=== PATIENT | female | born 1960 | race Two or more races ===

== ENCOUNTER 2022-03-15 14:34 | Emergency (ER) | payer MEDICAID, OTHER ==
[2022-03-15 14:43] VITALS: BP 135/77
--- NOTE | 2022-03-15 14:44 | ED Physician Documentation ---
PD HPI FEMALE - Stated complaint Stated Complaint: FEMALE - Chief complaint Chief Complaint: UTI - History obtained from History obtained from: Patient - History of Present Illness Timing - onset: How many days ago (few) Timing - duration: Days (few) Timing - details: Gradual onset, Still present Associated symptoms: No: Fever, Abdominal pain Contributing factors: No: Sexually active Similar symptoms before: Diagnosis (UTIs) Recently seen: Not recently seen Review of Systems Constitutional: denies: Fever, Chills, Myalgias GI: denies: Abdominal Pain, Nausea, Vomiting Skin: denies: Rash, Lesions Musculoskeletal: reports: Back pain (mild right CVA area.) Neurologic: denies: Generalized weakness, Near syncope PD PAST MEDICAL HISTORY - Past Medical History Cardiovascular: None Respiratory: None Endocrine/Autoimmune: None : Chronic bladder infection - Present Medications Home Medications: Ambulatory Orders Medication Instructions Recorded Confirmed Naproxen 250 mg PO BID 7 Days #14 tablet 03/15/22 Phenazopyridine HCl [Pyridium] 100 mg PO TID PRN #15 tablet 03/15/22 Sulfamethox/Trimeth 800/160 1 each PO BID 5 Days #10 tablet 03/15/22 [Bactrim Ds 800/160] - Allergies Allergies/Adverse Reactions: Allergies Allergy/AdvReac Type Severity Reaction Status Date / Time ceftriaxone [From Rocephin] Allergy Edema Verified 03/15/22 14:40 ciprofloxacin Allergy Rash Verified 03/15/22 14:40 levofloxacin [From Levaquin] Allergy Itching Verified 03/15/22 14:40 cefuroxime [From Ceftin] AdvReac Nausea Verified 03/15/22 14:40 PD ED PE NORMAL - Vitals Vital signs reviewed: Yes - General General: Alert and oriented X 3, No acute distress, Well developed/nourished - Abdomen Abdomen: Soft, Non tender - Back Back: No CVA TTP - Derm Derm: Normal color, Warm and dry - Neuro Neuro: Alert and oriented X 3, No motor deficit, Normal speech Results - Vitals Vitals: Vital Signs - 24 hr 03/15/22 14:40 Temperature 36.4 C L Heart Rate 75 Respiratory 18 Rate Blood Pressure 135/77 H O2 Saturation 99 Oxygen O2 Source Room air - Labs Labs: Laboratory Tests 03/15/22 14:55 Urine Color DARK YELLOW Urine Clarity CLEAR Urine pH 6.5 Ur Specific [place] 1.020 Urine Protein NEGATIVE Urine Glucose (UA) NEGATIVE Urine Ketones NEGATIVE Urine Occult Blood NEGATIVE Urine Nitrite NEGATIVE Urine Bilirubin NEGATIVE Urine Urobilinogen 2 H Ur Leukocyte Esterase NEGATIVE Ur Microscopic Review NOT INDICATED Urine Culture Comments NOT INDICATED PD MEDICAL DECISION MAKING - ED course Complexity details: reviewed results (Urine test does not show signs of infection. Her symptoms however are consistent with UTIs that she has had in the past. Her abdomen is benign on exam. I feel low risk for BV or vaginitis. Can treat empirically for cystitis with caution to return if not better in the next couple of days.), considered differential, d/w patient Departure - Departure Disposition: Home, Self Care Clinical Impression: Dysuria Condition: Stable Record reviewed to determine appropriate education?: Yes Instructions: ED UTI Cystitis Female Prescriptions: Sulfamethox/Trimeth 800/160 [Bactrim Ds 800/160] 1 each PO BID 5 Days #10 tablet Naproxen 250 mg PO BID 7 Days #14 tablet Phenazopyridine HCl [Pyridium] 100 mg PO TID PRN #15 tablet PRN Reason: Abdominal Pain Comments: Your urine sample does not show an obvious infection. However your symptoms are similar to bladder infections you have had before so we can treat empirically at this point and see how you do over the next few days. However be easy to return for a recheck or follow-up with your primary care if not readily improving over the next 2 to 3 days in case we need to be looking for other causes for your symptoms. If you get improved with medication and no further follow-up needed necessarily. I transmitted your prescriptions for an anti-inflammatory, medication for your discomfort as well as an antibiotic to [facility] in [place]. Discharge Date/Time: 03/15/22 15:34
[2022-03-15 15:03] LABS: BILIRUBIN,URINE NEGATIVE (NEGATIVE); GLUCOSE, URINE (UA) NEGATIVE (NEGATIVE); KETONES,URINE (UA) NEGATIVE (NEGATIVE); LEUKOCYTE ESTERASE, URINE NEGATIVE (NEGATIVE); NITRITE,URINE NEGATIVE (NEGATIVE); OCCULT BLOOD,URINE NEGATIVE (NEGATIVE); PH,URINE 6.5 PH (5.0-7.5); PROTEIN,URINE NEGATIVE (NEGATIVE); UROBILINOGEN,URINE 2 E.U./dL (NORMAL)
[2022-03-15 15:06] LABS: CLARITY,URINE CLEAR (CLEAR)
[2022-03-15] MEDS: NAPROXEN 250 MG TABLET PO STA (15:29)
[2022-03-15] MEDS: PHENAZOPYRIDINE 100 MG TABLET PO STA (15:29)
[2022-03-15] MEDS: SULFAMETH/TRIMETH DS 800/160 MG TABLET PO STA (15:29)
== END 2022-03-15 15:34 | disposition home or self-care (01) ==
LOC: ED 14:34
DX: R30.0 Dysuria (principal)
CPT/HCPCS: 81003; 99283; A9270; 81001; 87086

== ENCOUNTER 2022-05-11 11:50 | Emergency (ER) | payer MEDICAID ==
[2022-05-11 12:05] VITALS: BP 136/75
--- NOTE | 2022-05-11 12:44 | ED Physician Documentation ---
History of Present Illness - Stated complaint Stated Complaint: SINUS PX - Chief complaint Chief Complaint: Heent - Additonal information Additional information: 62-year-[place] presents for 2 days of sinus pressure congestion pain and headache. Reports that her grandkids at home have had the flu and/or allergies recently. She does endorse a cough but no fevers. Has copious amount of clear nasal drainage. She reports herself as having chronic sinusitis and they always give her antibiotics when she is in [place]. She is here to help her daughter who is having a baby but plans to return to [place] shortly. Denies any history of tobacco use. No diabetes. Takes no prescribed medications by provider. She has tried Tylenol without relief of the pain. She has taken 1 allergy tablet that she does not feel helps with the symptoms Review of Systems Constitutional: denies: Fever, Chills Eyes: reports: Loss of vision Ears: reports: Ear pain, Tinnitus/ringing Nose: reports: Rhinorrhea / runny nose, Congestion Throat: denies: Dental pain / toothache, Sore throat Respiratory: reports: Cough GI: reports: Reviewed and negative : reports: Reviewed and negative Skin: reports: Reviewed and negative PD PAST MEDICAL HISTORY - Past Medical History Cardiovascular: None Respiratory: None Endocrine/Autoimmune: None : Chronic bladder infection - Present Medications Home Medications: Ambulatory Orders Medication Instructions Recorded Confirmed Ibuprofen [Motrin] 600 mg PO Q6H PRN #30 tab 04/24/22 05/11/22 Fluticasone [Flonase] 1 sprays HANNAH DAILY #16 gm 05/11/22 - Allergies Allergies/Adverse Reactions: Allergies Allergy/AdvReac Type Severity Reaction Status Date / Time ceftriaxone [From Rocephin] Allergy Edema Verified 05/11/22 12:01 ciprofloxacin Allergy Rash Verified 05/11/22 12:01 levofloxacin [From Levaquin] Allergy Itching Verified 05/11/22 12:01 cefuroxime [From Ceftin] AdvReac Nausea Verified 05/11/22 12:01 - Social History Does the pt smoke?: No Smoking Status: Never smoker PD ED PE EXPANDED - General General: Alert, No acute distress, Well developed/nourished - HEENT HEENT: PERRL, Ears normal, Right frontal sinus TTP, Left frontal sinus TTP, Right maxillary sinus TTP, Left maxillary sinus TTP, Nasal congestion, Rhinorrhea, Pharynx normal - Neck Neck: Supple w/out meningeal sx. No: Adenopathy - Cardiac Cardiac: Regular Rate, Radial strong equal, Pedal strong equal, Cap refill < 2 sec. No: Murmur Present - Respiratory Respiratory: Clear to ausultation yana. No: Distress, Labored - Neuro Neuro: Alert and Oriented X 3, CNII-XII intact - GCS Eye Opening: Spontaneous Motor: Obeys Commands Verbal: Oriented Total: 15 Results - Vitals Vitals: Vital Signs - 24 hr 05/11/22 12:01 Temperature 36.7 C Heart Rate 99 Respiratory 18 Rate Blood Pressure 136/75 H O2 Saturation 99 Oxygen O2 Source Room air PD MEDICAL DECISION MAKING - ED course Complexity details: considered differential, d/w patient ED course: This is a very well-appearing 62-year-old female that presents emergency department for 2 days of sinus pressure and pain. She does have a cough. No fevers, facial swelling. She has copious clear nasal secretions. Similar illness in children and grandchildren at home. On exam I suspect she likely has a viral sinusitis or allergy induced congestion. I have made the recommendation for saline nasal rinses followed by Flonase nasal spray. She should continue the daily allergy medicine. She may benefit from a dose or 2 of Sudafed to help with congestion. Patient is frustrated. She would like a prescription for antibiotics but we discussed that with a short duration of symptoms no secondary findings suggest a bacterial sinusitis I felt it would be more appropriate to consider conservative measures instead. Patient will return if symptoms not better over the next week or she develops any fevers Departure - Departure Disposition: 01 Home, Self Care Clinical Impression: Sinus congestion Condition: Stable Record reviewed to determine appropriate education?: Yes Instructions: ED Sinusitis No Abx Tx Ch Prescriptions: Fluticasone [Flonase] 1 sprays HANNAH DAILY #16 gm Comments: Alina you were seen today because you had 2 days of sinus pressure, congestion headaches and nasal drainage that is clear. As we discussed at the bedside you most likely have either a virus or allergies that are causing your symptoms. I would like you to try saline nasal rinses in the shower followed by Flonase nasal spray. This can help reduce the congestion and the steroid and the Flonase can help prevent the congestion from coming back. A dose or 2 of Sudafed can also help reduce your congestion but do not use this for too long or too often as you can get rebound congestion from overuse. Continuing the daily allergy medication should also help. In general most sinus pressure and congestion will begin to improve after a week to 10 days. If you find that your symptoms or not improving, you have fevers, facial swelling milky drainage from your nose and please return to the ER for a second evaluation.
== END 2022-05-11 12:59 | disposition home or self-care (01) ==
LOC: ED 11:50
DX: R09.81 Nasal congestion (principal)
CPT/HCPCS: 99282

== ENCOUNTER 2023-12-18 11:37 | Emergency (ER) | payer MEDICAID, MEDICARE, OTHER ==
[2023-12-18 11:52] VITALS: O2SAT 99
--- NOTE | 2023-12-18 12:11 | ED Physician Documentation ---
PD HPI HEENT - Stated complaint Stated Complaint: CONGESTION,SINUS SWELLING - Chief complaint Chief Complaint: Heent - History obtained from History obtained from: Patient - Additional information Additional information: Patient is a 63-year-old female presenting for evaluation of bilateral maxillary sinus congestion and pressure that has been ongoing for 3 weeks. She reports having green nasal drainage. She denies fever. No cough or chest pain or shortness of breath. Patient reports had a history of sinus infections in the past. She has tried bzib-yap-rboyija medications without any improvement. Review of Systems Constitutional: denies: Fever Nose: reports: Congestion, Sinus pressure / pain Cardiac: denies: Chest pain / pressure Respiratory: denies: Dyspnea GI: reports: Nausea. denies: Abdominal Pain PD PAST MEDICAL HISTORY - Past Medical History Past Medical History: Yes Cardiovascular: None Respiratory: None Neuro: None Endocrine/Autoimmune: None : Chronic bladder infection HEENT: Chronic sinusitis - Present Medications Home Medications: Ambulatory Orders Medication Instructions Recorded Confirmed Ibuprofen [Motrin] 600 mg PO Q6H PRN #30 tab 04/24/22 05/11/22 Fluticasone [Flonase] 1 sprays HANNAH DAILY #16 gm 05/11/22 Amox/Clav 875/125 [Augmentin] 1 each PO Q12H #14 tablet 12/18/23 Ondansetron Odt [Zofran] 4 mg TL Q6H PRN #10 tablet 12/18/23 - Allergies Allergies/Adverse Reactions: Allergies Allergy/AdvReac Type Severity Reaction Status Date / Time ceftriaxone [From Rocephin] Allergy Edema Verified 12/18/23 11:44 ciprofloxacin Allergy Rash Verified 12/18/23 11:44 levofloxacin [From Levaquin] Allergy Itching Verified 12/18/23 11:44 cefuroxime [From Ceftin] AdvReac Nausea Verified 12/18/23 11:44 - Social History Does the pt smoke?: No Smoking Status: Never smoker Does the pt drink ETOH?: No Does the pt have substance abuse?: No - Immunizations Immunizations are current?: Yes PD ED PE NORMAL - General General: Alert and oriented X 3, No acute distress, Well developed/nourished - HEENT HEENT: Atraumatic, Moist mucous membranes, Pharynx benign, Other (Tenderness over bilateral maxillary sinuses, no overlying erythema, no facial swelling) - Neck Neck: Supple, no meningeal sign - Cardiac Cardiac: RRR, Strong equal pulses - Respiratory Respiratory: No respiratory distress, Clear bilaterally - Derm Derm: Warm and dry - Neuro Neuro: Normal speech Results - Vitals Vitals: Vital Signs - 24 hr 12/18/23 12/18/23 11:44 12:17 Temperature 36.6 C 36.5 C Heart Rate 74 72 Respiratory 15 16 Rate Blood Pressure 128/79 124/75 O2 Saturation 99 99 Oxygen O2 Source Room air PD Medical Decision Making - ED course ED course: Patient with sinus tenderness and fullness for the past 3 weeks. Her symptoms have not improved with lasn-yjl-eslmqme treatments. She is otherwise well-appea ring. No signs of labored breathing. Vital signs are stable. No signs of facial abscess. No signs of airway compromise. Given the duration of her symptoms feel an antibiotic course is appropriate and have sent a prescription for Augmentin to her pharmacy. Patient counseled on a treatment plan as well as concerning symptoms to return for. Departure - Departure Disposition: Home, Self Care Clinical Impression: Sinusitis Condition: Stable Instructions: ED Sinusitis Abx Tx Prescriptions: Amox/Clav 875/125 [Augmentin] 1 each PO Q12H #14 tablet Ondansetron Odt [Zofran] 4 mg TL Q6H PRN #10 tablet PRN Reason: Nausea / Vomiting Comments: Given the duration of your symptoms we have opted to treat with antibiotics. If sent your prescriptions to [facility] in [place] which includes an antibiotic as well as antinausea medication. Continue with staying hydrated and using the saline sprays to loosen any congestion. Return to the ER with any worsening symptoms or new concerns. Forms: PCP List Discharge Date/Time: 12/18/23 12:17
[2023-12-18 12:22] VITALS: BP 124/75
== END 2023-12-18 12:17 | disposition home or self-care (01) ==
LOC: ED 11:37
DX: J32.9 Chronic sinusitis, unspecified (principal)
CPT/HCPCS: 99282; 99283

== ENCOUNTER 2024-01-06 12:14 | Emergency (ER) | payer MEDICARE ==
[2024-01-06 12:30] VITALS: BP 112/56; O2SAT 98
--- NOTE | 2024-01-06 12:34 | ED Physician Documentation ---
History of Present Illness - Stated complaint Stated Complaint: - Chief complaint Chief Complaint: Abd Pain - History obtained from History obtained from: Patient - Additonal information Additional information: 63-year-old woman with frequent UTIs who is visiting from [place] with right ear pain for 2 weeks and also urinary frequency and urgency for a week. She has seen urology in [place] without specific diagnosis except for potential atrophic vaginitis for which she takes a cream. She denies fevers. PD PAST MEDICAL HISTORY - Past Medical History Past Medical History: Yes Cardiovascular: None Respiratory: None Neuro: None Endocrine/Autoimmune: None : Chronic bladder infection HEENT: Chronic sinusitis - Past Surgical History Past Surgical History: No - Present Medications Home Medications: Ambulatory Orders Medication Instructions Recorded Confirmed Nitrofurantoin [Macrobid] 1 cap PO BID #10 cap 01/06/24 Ondansetron Odt [Zofran] 4 mg TL Q6H PRN #10 tablet 01/06/24 Pantoprazole [Protonix] 40 mg PO DAILY 01/06/24 01/06/24 - Allergies Allergies/Adverse Reactions: Allergies Allergy/AdvReac Type Severity Reaction Status Date / Time ceftriaxone [From Rocephin] Allergy Edema Verified 01/06/24 12:23 ciprofloxacin Allergy Rash Verified 01/06/24 12:23 levofloxacin [From Levaquin] Allergy Itching Verified 01/06/24 12:23 cefuroxime [From Ceftin] AdvReac Nausea Verified 01/06/24 12:23 - Social History Does the pt smoke?: No Smoking Status: Never smoker Does the pt drink ETOH?: No Does the pt have substance abuse?: No - Immunizations Immunizations are current?: Yes PD ED PE NORMAL - Vitals Vital signs reviewed: Yes - General General: Alert and oriented X 3, No acute distress - HEENT HEENT: PERRL, EOMI, Pharynx benign, Other (TMs are normal with the exception of sclerosis of the right TM. There is no otitis.) - Abdomen Abdomen: Soft, Non tender - Back Back: No CVA TTP - Neuro Neuro: Alert and oriented X 3 Results - Vitals Vitals: Vital Signs - 24 hr 01/06/24 12:17 Temperature 36.3 C L Heart Rate 71 Respiratory 16 Rate Blood Pressure 112/56 L O2 Saturation 98 Oxygen O2 Source Room air - Labs Labs: Laboratory Tests 01/06/24 12:30 Urine Color YELLOW Urine Clarity CLOUDY Urine pH 6.0 Ur Specific [place] >=1.030 H Urine Protein NEGATIVE Urine Glucose (UA) NEGATIVE Urine Ketones NEGATIVE Urine Occult Blood NEGATIVE Urine Nitrite NEGATIVE Urine Bilirubin NEGATIVE Urine Urobilinogen 1 (NORMAL) Ur Leukocyte Esterase SMALL H Urine RBC 0-5 Urine WBC >25 H Ur Squamous Epith Cells FEW Squamous Urine Bacteria Few Ur Microscopic Review INDICATED Urine Culture Comments INDICATED PD Medical Decision Making - ED course ED course: She has ear pain but no otitis. She does have cystitis symptoms with positive UA treated with Macrobid. Departure - Departure Disposition: Home, Self Care Clinical Impression: Cystitis Condition: Good Record reviewed to determine appropriate education?: Yes Instructions: ED UTI Cystitis Female Prescriptions: Nitrofurantoin [Macrobid] 1 cap PO BID #10 cap Ondansetron Odt [Zofran] 4 mg TL Q6H PRN #10 tablet PRN Reason: Nausea / Vomiting Comments: I sent your prescription electronically to the [facility] in [place]. We will culture your urine, the results should be done in 48-72 hours. If an antibiotic change is necessary we will call you. Return if worse in the meantime, especially if you develop increasing flank pain, fevers, or cannot keep down the medication. Forms: PCP List Discharge Date/Time: 01/06/24 13:24
[2024-01-06 12:36] LABS: BILIRUBIN,URINE NEGATIVE (NEGATIVE); GLUCOSE, URINE (UA) NEGATIVE (NEGATIVE); KETONES,URINE (UA) NEGATIVE (NEGATIVE); LEUKOCYTE ESTERASE, URINE SMALL (NEGATIVE); NITRITE,URINE NEGATIVE (NEGATIVE); OCCULT BLOOD,URINE NEGATIVE (NEGATIVE); PROTEIN,URINE NEGATIVE (NEGATIVE); UROBILINOGEN,URINE 1 (NORMAL) E.U./dL (NORMAL)
[2024-01-06 12:49] LABS: CLARITY,URINE CLOUDY (CLEAR)
[2024-01-06 12:51] LABS: BACTERIA,URINE Few /HPF (None Seen); RBC,URINE 0-5 /HPF (0-5); SQUAMOUS EPITHELIAL CELL,UR FEW Squamous (<= Few); WBC,URINE >25 /HPF (0-5)
[2024-01-06] MEDS: NITROFURANTOIN MACRO 100 MG CAPSULE PO STA (13:14)
[2024-01-06] MEDS: ONDANSETRON ODT 4 MG TABLET TL STA (13:14)
== END 2024-01-06 13:24 | disposition home or self-care (01) ==
LOC: ED 12:14
DX: N30.90 Cystitis, unspecified without hematuria (principal)
CPT/HCPCS: 81001; 87086; 87181; 99283; A9270; Q0162; 81003

== ENCOUNTER 2024-05-18 12:36 | Emergency (ER) | payer MEDICARE ==
[2024-05-18] MEDS: ACETAMINOPHEN 325 MG TABLET PO STA (15:52)
[2024-05-18] MEDS: KETOROLAC 30 MG/ML VIAL IM STA (15:53)
--- NOTE | 2024-05-18 15:55 | ED Physician Documentation ---
PD HPI UPPER EXT INJURY - Stated complaint Stated Complaint: GLF, LEFT SIDE PX - Chief complaint Chief Complaint: Trauma Ext - Additonal information Additional information: 64-year-old female with no pertinent past medical history presents emergency department for left shoulder pain and right hand pain. [place] from a mechanical ground-level fall. Says that she has been taking 500 mg of Tylenol and 1 pill of ibuprofen once daily and it does not alleviate the pain so she is coming into the ER for further evaluation would like x-rays and MRI of her left shoulder and hand. We informed her that we will not be doing an MRI today and informed her the reasons why and she understands. Will pursue x-rays. PD PAST MEDICAL HISTORY - Past Medical History Past Medical History: Yes Cardiovascular: None Respiratory: None Neuro: None Endocrine/Autoimmune: None GI: GERD : Chronic bladder infection HEENT: Chronic sinusitis - Past Surgical History Past Surgical History: No - Present Medications Home Medications: Ambulatory Orders Medication Instructions Recorded Confirmed Pantoprazole [Protonix] 40 mg PO DAILY 01/06/24 05/18/24 Cyclobenzaprine [Flexeril] 10 mg PO TID PRN 6 Days #20 tablet 05/18/24 - Allergies Allergies/Adverse Reactions: Allergies Allergy/AdvReac Type Severity Reaction Status Date / Time ceftriaxone [From Rocephin] Allergy Edema Verified 05/18/24 12:39 ciprofloxacin Allergy Rash Verified 05/18/24 12:39 levofloxacin [From Levaquin] Allergy Itching Verified 05/18/24 12:39 cefuroxime [From Ceftin] AdvReac Nausea Verified 05/18/24 12:39 - Social History Does the pt smoke?: No Smoking Status: Never smoker Does the pt drink ETOH?: No Does the pt have substance abuse?: No - Immunizations Immunizations are current?: Yes - POLST Patient has POLST: No PD ED PE NORMAL - Vitals Vital signs reviewed: Yes - General General: Alert and oriented X 3, No acute distress, Well developed/nourished - Derm Derm: Normal color, Warm and dry, No rash, Other (No ecchymosis or bruising) - Extremities Extremities: No deformity, Other - Free text exam Free text exam: Left shoulder: Tenderness with flexion extension abduction adduction mostly to the scapular region. Tenderness with patient to the scapula no tenderness to the humerus, strong radial pulse. Right hand tenderness with palpation to the palmar aspect full range of motion with flexion extension strong radial pulse.No skin abnormalities. Results - Vitals Vitals: Vital Signs - 24 hr 05/18/24 05/18/24 12:39 15:57 Temperature 36.5 C Heart Rate 76 67 Respiratory 16 16 Rate Blood Pressure 147/80 H 93/75 O2 Saturation 98 99 Oxygen O2 Source Room air - Rads (name of study) Left scapula x-rays Relevant Findings:: Final report received, EMP independent interpretation of test, Other (No acute bony abnormalities or fractures.) Right hand x-rays Relevant Findings:: Final report received, EMP independent interpretation of raulito t, Other (No acute bony abnormalities or fractures.) PD Medical Decision Making - ED course ED course: 64-year-old female presents emergency department for 2 weeks of left shoulder pain and right hand pain after experiencing a ground-level fall. She wanted an MRI originally but I informed her that unfortunately we do not do emergent MRIs for these types of reasons and she need to follow-up with her primary care provider if she wants to pursue this. X-rays were complete of the left scapula as well as the right hand and no fractures or abnormalities were visualized. She was placed in a sling for her left shoulder pain and was told to continue to use her left shoulder so that she does not get frozen as well as her left elbow. She was given a Toradol shot 30 mg intramuscular, 975 mg of Tylenol as well as some cyclobenzaprine here in the emergency department was given a prescription of cyclobenzaprine to her preferred pharmacy and was told how to better manage her medications at home and be more consistent with Tylenol and NSAIDs to help with staying on top of pain as well as cyclobenzaprine. Return precautions give n all questions answered patient safe for discharge at this time. Departure - Departure Disposition: 01 Home, Self Care Clinical Impression: Left shoulder strain Qualifiers: Encounter type: initial encounter Qualified Code(s): S46.912A - Strain of unspecified muscle, fascia and tendon at shoulder and upper arm level, left arm, initial encounter Instructions: ED Shoulder Pain [facility] Prescriptions: Cyclobenzaprine [Flexeril] 10 mg PO TID PRN 6 Days #20 tablet PRN Reason: Spasms Comments: Thank you for trusting us with your care we have completed x-rays of your left shoulder/scapular region as well as your right hand we have not seen any acute bony fractures or abnormalities. Please follow-up with your primary care provider as needed and make sure that you are being more consistent in lrafax-toy-zviaj with the medications that you are taking. You can take 1000 mg of Tylenol every 8 hours if you do this [id number]-[id number] this can definitely help get on top of your pain. You can Also take 500 mg of Aleve every 12 hours. I have also prescribed a medication called cyclobenzaprine for a couple days you can take this up to 3 times a day as needed and as a muscle relaxer and can help with pain. You can also buy lidocaine patches [id number] to apply to your left shoulder region to help with the pain. You can apply this on your left scapular region leave on for 12 hours again you can buy this [id number] at any preferred pharmacy. Do not drive while taking cyclobenzaprine. Please follow-up with your primary care provider as needed for possible Ortho referral if after taking these medications you are still experiencing pain. Wishing you a speedy recovery. Forms: PCP List Discharge Date/Time: 05/18/24 17:02
[2024-05-18 16:04] VITALS: BP 93/75; O2SAT 99
--- NOTE | 2024-05-18 16:30 | XRAY Report ---
PROCEDURE: Scapula 2V LT INDICATIONS: scapula pain after GLF TECHNIQUE: 2 views of the scapula were acquired. COMPARISON: 04/24/2022 FINDINGS: Bones: No fractures or dislocations. No suspicious bony lesions. Visualized ribs appear intact. Soft tissues: Overlying soft tissues appear normal. IMPRESSION: No acute fracture or dislocation. Reviewed by: Chris Saavedra MD on 05/18/2024 3:29 PM STEFAN Approved by: Chris Saavedra MD on 05/18/2024 3:29 PM AKHEIKE Station ID: [id number]
--- NOTE | 2024-05-18 16:31 | XRAY Report ---
PROCEDURE: Hand 3+V RT INDICATIONS: right hand pain after GLF TECHNIQUE: 3 views of the hand(s) acquired. COMPARISON: None. FINDINGS: Bones: No fractures or dislocations. Mild diffuse interphalangeal joint degeneration. No suspicious bony lesions. Soft tissues: No suspicious soft tissue calcifications or masses. IMPRESSION: No acute bony abnormality. Reviewed by: Chris Saavedra MD on 05/18/2024 3:29 PM AKHEIKE Approved by: Chris Saavedra MD on 05/18/2024 3:29 PM AKDT Station ID: [id number]
== END 2024-05-18 17:02 | disposition home or self-care (01) ==
LOC: ED 12:36
DX: M79.641 Pain in right hand (principal); S46.912A Strain of unspecified muscle, fascia and tendon at shoulder and upper arm level, left arm, initial encounter; W18.30XA Fall on same level, unspecified, initial encounter; Y92.520 Airport as the place of occurrence of the external cause
CPT/HCPCS: 73010; 73130; 96372; 99284; A9270